=== PATIENT | female | born 1975 | race Caucasian/White ===

== ENCOUNTER 2020-02-01 18:29 | Emergency (ER) | payer BC, MEDICAID ==
[2020-02-01] MEDS ORDERED: NORMAL SALINE 1000 ML 1,000 ML IV ONE (18:55)
--- NOTE | 2020-02-01 18:57 | ER Document Report ---
ED Medical Screen (RME) - General Chief Complaint: Cold Symptoms Stated Complaint: COUGH/FEVER/CHILLS/VOMITIG Time Seen by Provider: 02/01/20 18:49 Information source: Patient Notes: Patient presents complaining of headache, cough with shortness of breath. Patient states she is had a cough for the past 3 days. Has been productive with green and yellow sputum. Patient reports loss of taste. Patient presents with fever and diarrhea at home. Patient reports recent travel and is vacationing here. hx: Dyslipidemia, anxiety, diabetes, fibromyalgia, hysterectomy, CPAP I have greeted and performed a rapid initial assessment of this patient. A comprehensive ED assessment and evaluation of the patient, analysis of test results and completion of the medical decision making process will be conducted by additional ED providers. - Related Data Allergies/Adverse Reactions: Penicillins Allergy (Verified 02/01/20 18:49) Sulfa (Sulfonamide Antibiotics) Allergy (Verified 02/01/20 18:49) Physical Exam - Vital signs Vitals: Temp Pulse Resp BP Pulse Ox 99.2 F 116 H 18 145/109 H 97 02/01/20 18:39 02/01/20 18:39 02/01/20 18:39 02/01/20 18:39 02/01/20 18:39 - Respiratory Respiratory status: No respiratory distress Breath sounds: Nonproductive cough, Rhonchi Course - Vital Signs Vital signs: Temp Pulse Resp BP Pulse Ox 99.2 F 116 H 18 145/109 H 97 02/01/20 18:39 02/01/20 18:39 02/01/20 18:39 02/01/20 18:39 02/01/20 18:39
[2020-02-01 20:03] LABS: ABSOLUTE BASOPHILS # (AUTO) 0.1 10^3/uL (0.0-0.2); ABSOLUTE LYMPHOCYTES (AUTO) 1.8 10^3/uL (0.5-4.7); ABSOLUTE MONOCYTES (AUTO) 0.9 10^3/uL (0.1-1.4); ABSOLUTE NEUT (AUTO) 8.6 10^3/uL (1.7-8.2); BASOPHILS % (AUTO) 0.6 % (0-2); EOSINOPHILS % (AUTO) 0.1 % (0-6); HEMATOCRIT 42.8 % (36.0-47.0); HEMOGLOBIN 14.8 g/dL (12.0-15.5); LYMPHOCYTES % (AUTO) 15.6 % (13-45); MEAN CORPUSCULAR HEMOGLOBIN 29.6 pg (27.0-33.4); MEAN CORPUSCULAR HGB CONC 34.5 g/dL (32.0-36.0); MEAN CORPUSCULAR VOLUME 86 fl (80-97); MONOCYTES % (AUTO) 7.7 % (3-13); PLATELET COUNT 331 10^3/uL (150-450); RED BLOOD COUNT 4.99 10^6/uL (3.72-5.28); RED CELL DISTRIBUTION WIDTH 12.8 % (11.5-14.0); TOTAL CELLS COUNTED % (AUTO) 100 %; WHITE BLOOD COUNT 11.4 10^3/uL (4.0-10.5)
[2020-02-01 20:21] LABS: A TYPE INFLUENZA AG NEGATIVE (NEGATIVE); B INFLUENZA AG NEGATIVE (NEGATIVE)
[2020-02-01 20:24] LABS: ALBUMIN 4.2 g/dL (3.5-5.0); ALKALINE PHOSPHATASE 84 U/L (38-126); ANION GAP 12 (5-19); ASPARTATE AMINO TRANSFERASE 26 U/L (14-36); BILIRUBIN,DIRECT 0.3 mg/dL (0.0-0.4); BILIRUBIN,TOTAL 0.7 mg/dL (0.2-1.3); BLOOD UREA NITROGEN 12 mg/dL (7-20); CALCIUM 8.7 mg/dL (8.4-10.2); CARBON DIOXIDE 23 mmol/L (22-30); CHLORIDE 103 mmol/L (98-107); GLUCOSE 110 mg/dL (75-110); POTASSIUM 3.7 mmol/L (3.6-5.0); TOTAL PROTEIN 7.7 g/dL (6.3-8.2)
--- NOTE | 2020-02-01 20:37 | RADIOLOGY REPORT (SQ) ---
EXAM DESCRIPTION: X-RAY CHEST- One View CLINICAL HISTORY: Fever and cough COMPARISON: None available. TECHNIQUE: Single view of the chest. FINDINGS: There are no discrete air space infiltrates, pneumothoraces or pleural effusions. The pulmonary vascularity is normal. The cardiomediastinal silhouette is normal in size. No suspicious lytic or blastic osseous lesions are identified. IMPRESSION: There are no acute lung parenchymal findings. Please note that chest radiographs have low sensitivity for subtle groundglass opacities.
[2020-02-01] MEDS ORDERED: KETOROLAC TROMETHAMINE INJ/PF 30 MG/1 ML SDV IV ONE (21:12)
[2020-02-01] MEDS ORDERED: DEXAMETHASONE SOD PHOS INJ 10 MG/1 ML VIAL IV ONE (21:12)
[2020-02-01] MEDS ORDERED: AZITHROMYCIN 250 MG TABLET PO ONE (21:13)
--- NOTE | 2020-02-01 21:14 | ER Document Report ---
ED General - General Chief Complaint: Flu Symptoms Stated Complaint: COUGH/FEVER/CHILLS/VOMITIG Time Seen by Provider: 02/01/20 18:49 Notes: Patient is a 44-year-old female comes emergency department for chief complaint of cough, yellowish/greenish sputum with cough, loss of taste, fever/chills, headache, body aches. Symptoms started 3 days ago, she had a fever today of 101 F per patient. She denies chest pain, abdominal pain, vomiting. Patient reports recent travel and is currently on vacation here. Patient denies smoking, asthma, or any cardiac/pulmonary history except for AMOL. Past medical history of obesity, hyperlipidemia, anxiety/depression, fibromyalgia, hysterectomy. - Related Data Allergies/Adverse Reactions: Penicillins Allergy (Verified 02/01/20 18:49) Sulfa (Sulfonamide Antibiotics) Allergy (Verified 02/01/20 18:49) Home Medications: seroquel. atorvastatin. buspar. gabapentin. vyvanse. norco. htn. l-methylola Past Medical History - General Information source: Patient - Social History Smoking Status: Never Smoker Chew tobacco use (# tins/day): No Frequency of alcohol use: None Drug Abuse: None Lives with: Family Family History: Reviewed & Not Pertinent Patient has homicidal ideation: No - Past Medical History Cardiac Medical History: Reports: Hx Hypercholesterolemia Pulmonary Medical History: Reports: Hx Sleep Apnea Musculoskeletal Medical History: Reports Hx Fibromyalgia Psychiatric Medical History: Reports: Hx Bipolar Disorder, Hx Depression Past Surgical History: Reports: Hx Hysterectomy - Immunizations Hx Diphtheria, Pertussis, Tetanus Vaccination: Yes Review of Systems - Review of Systems Constitutional: See HPI EENT: No symptoms reported Cardiovascular: No symptoms reported Respiratory: See HPI Gastrointestinal: No symptoms reported Genitourinary: No symptoms reported Female Genitourinary: No symptoms reported Musculoskeletal: See HPI Skin: No symptoms reported Hematologic/Lymphatic: No symptoms reported Neurological/Psychological: See HPI Physical Exam - Vital signs Vitals: Temp Pulse Resp BP Pulse Ox 99.2 F 116 H 18 145/109 H 97 02/01/20 18:39 02/01/20 18:39 02/01/20 18:39 02/01/20 18:39 02/01/20 18:39 - Notes Notes: GENERAL: Slightly ill-appearing but still alert and cooperative, still conversational and interactive HEAD: Normocephalic, atraumatic. EYES: Pupils equal, round, and reactive to light. Extraocular movements intact. ENT: Oral mucosa moist, tongue midline. Oropharynx unremarkable. Airway patent. Nares patent, sinuses non-tender, ear canals unremarkable, TM's intact. NECK: Full range of motion. Supple. Trachea midline. No lymphadenopathy. LUNGS: Clear to auscultation bilaterally, no wheezes, rales, or rhonchi. No respiratory distress. Non-tender chest wall. Nonproductive cough which is congested sounding. No tachypnea or labored breathing HEART: Regular rate and rhythm. No murmur ABDOMEN: Soft, non-tender. Non-distended. EXTREMITIES: Moves all 4 extremities spontaneously. No edema, normal radial and dorsalis pedis pulses bilaterally. No cyanosis. BACK: no cervical, thoracic, lumbar midline tenderness. No saddle anesthesia, normal distal neurovascular exam. Moves all extremities in full range of motion. NEUROLOGICAL: Alert and oriented x3. Normal speech. Cranial nerves II through XII grossly intact. Strength 5/5 in all extremities. PSYCH: Normal affect, normal mood. SKIN: Warm and slightly flushed Course - Re-evaluation Re-evalutation: Patient is mildly ill-appearing on my exam with occasional congested coughing episodes, however her lungs are clear, she is not hypoxic, she is not tachycardic on my exam, she is alert, has no nuchal rigidity, her evaluation is otherwise unremarkable. Laboratory work-up reviewed including CBC, chemistry. These are unremarkable except for mild leukocytosis and elevation of n eutrophils. Chest x-ray unremarkable. Influenza negative. I discussed with patient. She is now started have a low-grade fever again. Because of her mild leukocytosis with elevation of neutrophils, productive cough, fever, it is possible that she has a pneumonia and clinically she appears to have pneumonia. However she also has loss of taste and recent travel, she was tested for COVID-19, she will be given dexamethasone, given azithromycin after discussing options, discussed expectations, quarantine, follow-up, return precautions. Patient states appreciation and agreement. Stable and well- appearing at time of discharge. - Vital Signs Vital signs: Temp Pulse Resp BP Pulse Ox 100.2 F 98 14 142/68 H 96 02/01/20 21:27 02/01/20 21:27 02/01/20 21:27 02/01/20 21:27 02/01/20 21:27 - Laboratory Result Diagrams: 02/01/20 19:42 02/01/20 19:24 Laboratory results interpreted by me: 02/01/20 19:42 WBC 11.4 H Absolute Neuts (auto) 8.6 H - EKG Interpretation by Me Additional EKG results interpreted by me: EKG shows sinus tachycardia at a rate of 101, QTc 452, normal axis, no T wave inversions or ST segment changes in consecutive leads Discharge - Discharge Clinical Impression: Productive cough, Loss of taste, Person under investigation for COVID-19 Condition: Stable Disposition: HOME, SELF-CARE Additional Instructions: Your laboratory work-up, chest x-ray, and evaluation here are reassuring. Your Influenza test is negative. This appears to be viral, however because of your worsening productive cough we are covering you for potential pneumonia with azithromycin. You have been tested for COVID-19, you will be called with your results and additional instructions. See additional details below, please quarantine while awaiting results. You have been treated with Decadron to help your symptoms, drink plenty fluids, treat fever/body aches with Tylenol and/or ibuprofen, use Tessalon for cough. Return if you worsen including chest pain, difficulty breathing, or any other concerning or worsening symptoms. As a person under investigation for COVID-19, the [place] Department of Health and Human Services (division on public health) advises you to adhere to the following guidance until your test results are reported to you. If your test result is positive, you will receive additional information from your provider and your local health department at that time. Remain at home until you are cleared by the health provider or public health authorities. Keep a log of visitors to your home, notify any visitors to your home of your isolation status. If you plan to move to a new address or leave the [facility], notify the local health department in your County. Call your Doctor or seek care if you have an urgent medical need. Before seeking medical care, call him to get instructions from the provider before arriving at the medical office, clinic, or hospital. Notify them that you are being tested for the virus (COVID-19) so that arrangements can be made, as necessary, to prevent transmission to others in the healthcare setting. Next, notify the local health department in your county. If a medical emergency arises and you need to call 911, inform the first responders that you are being tested for the virus that causes COVID-19. Next, notify the local health department in your county. Prescriptions: Benzonatate [Tessalon Perles 100 mg Capsule] 100 mg PO Q8HP PRN #20 capsule PRN Reason: Azithromycin [Zithromax 250 mg Tablet] 250 mg PO ASDIR PRN #4 tablet PRN Reason: Forms: Return to Work
[2020-02-01 21:32] VITALS: BP 142/68
--- NOTE | 2020-02-02 00:44 | EKG REPORT ---
SEVERITY:- OTHERWISE NORMAL ECG - SINUS TACHYCARDIA : Confirmed by: Lynn Johnston MD 02-Feb-2020 00:44:20
== END 2020-02-01 21:31 | disposition home or self-care (01) ==
LOC: ER 18:29
DX: U07.1 COVID-19 (principal); R05 Cough; R43.9 Unspecified disturbances of smell and taste; R50.9 Fever, unspecified; R11.10 Vomiting, unspecified; E78.00 Pure hypercholesterolemia, unspecified; Z88.0 Allergy status to penicillin; Z88.2 Allergy status to sulfonamides
CPT/HCPCS: 93005; 99285; 96361; 96374; 96375; 36415; 85025; 87635; 80053; 87804; 71045; 93010; J1885; J7030; J1100; C9803

== ENCOUNTER 2020-02-03 19:54 | Emergency (ER) | payer BC, MEDICAID ==
--- NOTE | 2020-02-03 21:04 | ER Document Report ---
ED Medical Screen (RME) - General Chief Complaint: Shortness Of Breath Stated Complaint: SHORTNESS OF BREATH Time Seen by Provider: 02/03/20 21:02 Mode of Arrival: Ambulatory Information source: Patient Notes: HPI; 44-year-old female presents to the emergency room complaining of worsening shortness of breath with nausea since last week. Patient states she was seen here on Tuesday with diagnosed with positive COVID, states she has not gotten the results of her COVID as of yet. States she has been taking Tylenol, and ibuprofen along with a Z-Saulo and Tessalon Perles without relief. Still running fevers of 102. Last dose of Tylenol 2 and half hours prior to arrival. PE: Alert and oriented x3. Mild distress noted. Lungs: Rhonchi without wheezes or rales. Heart: Tachycardic without murmurs, rubs, gallops. I have greeted and performed a rapid initial assessment of this patient. A comprehensive ED assessment and evaluation of the patient, analysis of test results and completion of the medical decision making process will be conducted by additional ED providers. I have specifically instructed the patient or family members with the patient to immediately return to any nursing staff should anything change in the patient's condition or with their chief complaint. TRAVEL OUTSIDE OF THE [place] IN LAST 30 DAYS: No - Related Data Allergies/Adverse Reactions: Penicillins Allergy (Verified 02/01/20 18:49) Sulfa (Sulfonamide Antibiotics) Allergy (Verified 02/01/20 18:49) Past Medical History - Past Medical History Cardiac Medical History: Reports: Hx Hypercholesterolemia Pulmonary Medical History: Reports: Hx Sleep Apnea Musculoskeltal Medical History: Reports Hx Fibromyalgia Psychiatric Medical History: Reports: Hx Bipolar Disorder, Hx Depression Past Surgical History: Reports: Hx Hysterectomy - Immunizations Hx Diphtheria, Pertussis, Tetanus Vaccination: Yes Physical Exam - Vital signs Vitals: Temp Pulse Resp BP Pulse Ox 99.3 F 98 18 142/72 H 98 02/03/20 20:19 02/03/20 20:19 02/03/20 20:19 02/03/20 20:19 02/03/20 20:19 Course - Vital Signs Vital signs: Temp Pulse Resp BP Pulse Ox 99.3 F 98 18 142/72 H 98 02/03/20 20:19 02/03/20 20:19 02/03/20 20:19 02/03/20 20:19 02/03/20 20:19
[2020-02-03] MEDS ORDERED: ONDANSETRON HCL INJ/PF 4 MG/2 ML SDV IV ONE (21:06)
--- NOTE | 2020-02-03 23:01 | RADIOLOGY REPORT (SQ) ---
XR CHEST 1 VIEW CLINICAL STATEMENT: cough COMPARISON: 02/01/2020 FINDINGS: Cardiomediastinal silhouette is within normal limits. There is no focal lung consolidation or pleural effusion. No evidence of pulmonary edema or pneumothorax. IMPRESSION: No acute cardiopulmonary disease.
[2020-02-03] MEDS ORDERED: ONDANSETRON HCL INJ/PF 4 MG/2 ML SDV ONE (23:16)
--- NOTE | 2020-02-03 23:38 | ER Document Report ---
ED General - General Chief Complaint: Shortness Of Breath Stated Complaint: SHORTNESS OF BREATH Time Seen by Provider: 02/03/20 21:02 Mode of Arrival: Ambulatory TRAVEL OUTSIDE OF THE [place] IN LAST 30 DAYS: No - HPI Notes: Patient is a 44-year-old female who presents to the emergency department for evaluation of increasing dyspnea. She was seen last week. She reports ongoing fever, chills, headache, body aches, anosmia, diarrhea. She states today she has had increasing shortness of breath and still continues to feel poorly. She continues to have shortness of breath. She has been using Zithromax and Tessalon Perles at home with limited relief. Report today came back to the patient is in fact Covid positive, patient was unaware of this fact. - Related Data Allergies/Adverse Reactions: Penicillins Allergy (Verified 02/01/20 18:49) Sulfa (Sulfonamide Antibiotics) Allergy (Verified 02/01/20 18:49) Home Medications: Seroquel, atorvastatin, BuSpar, Neurontin, Vyvanse, [place], hypertension, L methyldopa Past Medical History - General Information source: Patient - Social History Smoking Status: Current Every Day Smoker Family History: Reviewed & Not Pertinent - Past Medical History Cardiac Medical History: Reports: Hx Hypercholesterolemia Pulmonary Medical History: Reports: Hx Sleep Apnea Musculoskeletal Medical History: Reports Hx Fibromyalgia Psychiatric Medical History: Reports: Hx Bipolar Disorder, Hx Depression Past Surgical History: Reports: Hx Hysterectomy - Immunizations Hx Diphtheria, Pertussis, Tetanus Vaccination: Yes Review of Systems - Review of Systems Constitutional: See HPI EENT: See HPI Cardiovascular: No symptoms reported Respiratory: See HPI Gastrointestinal: See HPI Genitourinary: No symptoms reported Musculoskeletal: No symptoms reported Skin: No symptoms reported Neurological/Psychological: No symptoms reported Physical Exam - Vital signs Vitals: Temp Pulse Resp BP Pulse Ox 99.3 F 98 18 142/72 H 98 02/03/20 20:19 02/03/20 20:19 02/03/20 20:19 02/03/20 20:19 02/03/20 20:19 - Notes Notes: Vital signs reviewed, please refer to chart. Head is normocephalic, atraumatic. Pupils equal round, reactive to light. Neck is supple without meningismus. H eart is regular rate and rhythm. Lungs are clear to auscultation bilaterally. Abdomen is soft, nontender, normoactive bowel sounds throughout. Extremities without cyanosis, clubbing. Posterior calves are nontender. Peripheral pulses are equal. Skin is warm and dry. Patient is awake, alert, neurological exam is nonfocal. Course - Re-evaluation Re-evalutation: 02/03/20 23:36 Patient presents to the emergency department for evaluation. She is found to be in fact Covid positive. She is not on beta-blockers. Her heart rate is in the 80s and 90s. Her chest x-ray is unremarkable. She was already stuck for blood work. I did order a CT angiogram of the chest to evaluate her for pulmonary embolus. The patient is refusing to have another IV stick for placement. I will explained to the patient my thought process and ordering the CT angiogram, but certainly she can refuse it. She will be made aware of all of the risks associated with an undiagnosed pulmonary embolus. Otherwise, symptomatic medications is what is indicated. She is to rest, stay well-hydrated. She is already being treated with Zithromax. 02/03/20 23:44 Patient states that she has not decided as to whether or not she will have another attempt to get a CT angiogram performed. She does ask for IV fluids, these were ordered. Still awaiting electrolytes. 02/04/20 01:16 Patient's electrolytes revealed hypokalemia, although mild. I did order oral potassium replacement. I went back in and explained to the patient why I wanted a CT angiogram, the patient refuses. She understands the consequences of a missed pulmonary embolus, including heart damage and . She understands if she changes her mind at any time she can return. She is to return to the emergency department with worsening or new concerning symptoms of any sort. - Vital Signs Vital signs: Temp Pulse Resp BP Pulse Ox 99.3 F 98 18 142/72 H 98 02/03/20 20:19 02/03/20 20:19 02/03/20 20:19 02/03/20 20:19 02/03/20 20:19 - Laboratory Result Diagrams: 02/03/20 23:31 02/03/20 23:58 Laboratory results interpreted by me: 02/03/20 23:58 Potassium 3.3 L Calcium 7.6 L Total Protein 5.9 L Albumin 3.2 L - Diagnostic Test Radiology reviewed: Image reviewed, Reports reviewed Radiology results interpreted by me: 02/03/20 23:38 Chest X-Ray 02/03/20 21:03 IMPRESSION: No acute cardiopulmonary disease. Discharge - Discharge Clinical Impression: COVID-19, Hypokalemia Condition: Stable Disposition: HOME, SELF-CARE Instructions: COVID-19 Guidance for Persons Under Investigation Additional Instructions: You have been diagnosed with COVID-19. Please isolate at home, make sure that you are household members are quarantined for 10 to 14 days after exposure to you. Follow-up with your primary care provider this week. Continue home symptomatic medications. You have elected not to have a CT angiogram performed, which looks for a blood clot. If you change your mind regarding this study, or if you develop worsening or new concerning symptoms of any sort, please return immediately to the emergency department for reevaluation.
[2020-02-03] MEDS ORDERED: NORMAL SALINE 1000 ML 1,000 ML IV ONE (23:42)
[2020-02-03 23:57] LABS: ABSOLUTE LYMPHOCYTES (AUTO) 2.1 10^3/uL (0.5-4.7); ABSOLUTE MONOCYTES (AUTO) 1.1 10^3/uL (0.1-1.4); ABSOLUTE NEUT (AUTO) 7.2 10^3/uL (1.7-8.2); BASOPHILS % (AUTO) 0.2 % (0-2); EOSINOPHILS % (AUTO) 0.4 % (0-6); HEMATOCRIT 39.3 % (36.0-47.0); HEMOGLOBIN 13.8 g/dL (12.0-15.5); MEAN CORPUSCULAR HEMOGLOBIN 30.3 pg (27.0-33.4); MEAN CORPUSCULAR HGB CONC 35.3 g/dL (32.0-36.0); MEAN CORPUSCULAR VOLUME 86 fl (80-97); MONOCYTES % (AUTO) 10.6 % (3-13); PLATELET COUNT 291 10^3/uL (150-450); RED BLOOD COUNT 4.58 10^6/uL (3.72-5.28); RED CELL DISTRIBUTION WIDTH 12.7 % (11.5-14.0); SEGMENTED NEUTROPHILS % (AUTO) 68.8 % (42-78); TOTAL CELLS COUNTED % (AUTO) 100 %; WHITE BLOOD COUNT 10.4 10^3/uL (4.0-10.5)
[2020-02-04 00:28] LABS: ALBUMIN 3.2 g/dL (3.5-5.0); ALKALINE PHOSPHATASE 69 U/L (38-126); ANION GAP 8 (5-19); ASPARTATE AMINO TRANSFERASE 16 U/L (14-36); BILIRUBIN,DIRECT 0.3 mg/dL (0.0-0.4); BILIRUBIN,TOTAL 0.6 mg/dL (0.2-1.3); BLOOD UREA NITROGEN 16 mg/dL (7-20); CALCIUM 7.6 mg/dL (8.4-10.2); CARBON DIOXIDE 23 mmol/L (22-30); CHLORIDE 106 mmol/L (98-107); GLUCOSE 77 mg/dL (75-110); POTASSIUM 3.3 mmol/L (3.6-5.0); TOTAL PROTEIN 5.9 g/dL (6.3-8.2)
[2020-02-04] MEDS ORDERED: POTASSIUM CHLORIDE 10 MEQ TABLET.ER PO ONE (01:15)
[2020-02-04 02:10] VITALS: BP 117/80
== END 2020-02-04 02:23 | disposition home or self-care (01) ==
LOC: ER 19:54
DX: U07.1 COVID-19 (principal); E87.6 Hypokalemia; R06.02 Shortness of breath; R06.00 Dyspnea, unspecified; M79.10 Myalgia, unspecified site; R43.0 Anosmia; R19.7 Diarrhea, unspecified; Z88.0 Allergy status to penicillin; Z88.2 Allergy status to sulfonamides; Z79.899 Other long term (current) drug therapy; F17.200 Nicotine dependence, unspecified, uncomplicated
CPT/HCPCS: 99284; 96361 ×2; 96374; 36415; 85025; 80053; 71045; J2405; J7030